=== PATIENT | female | born 1945 | race Caucasian/White ===

== ENCOUNTER 2017-03-25 17:11 | Inpatient (IN) | payer MEDICARE ==
[~2017-03-25] VITALS: Ht 160 cm; Wt 81.4 kg
[2017-03-25 18:38] VITALS: BP 114/75
[2017-03-25] MEDS ORDERED: LEVO50TA5 PO (18:44)
[2017-03-25] MEDS ORDERED: APIX5TAB PO (18:44)
[2017-03-25] MEDS ORDERED: ASPI-515 PO (18:44)
[2017-03-25] MEDS ORDERED: ROSU5TAB PO (18:44)
[2017-03-25] MEDS ORDERED: ONDANSETRON 2MG/ML, 2ML IV PRN (19:00)
[2017-03-25] MEDS ORDERED: ACETAMINOPHEN 500 MG TABLET PO PRN (19:00)
[2017-03-25] MEDS ORDERED: ONDANSETRON 4 MG TABLET PO PRN (19:00)
[2017-03-25 19:57] VITALS: BP 132/79
[2017-03-26 00:44] VITALS: BP 114/70
[2017-03-26 05:32] LABS: HEMATOCRIT 40.3 % (34.6-47.8); HEMOGLOBIN 13.7 g/dL (11.7-16.4); WHITE BLOOD COUNT 6.4 x10^3/uL (3.4-10)
[2017-03-26 05:44] LABS: BLOOD UREA NITROGEN 11 mg/dL (7-18)
[2017-03-26 05:49] LABS: ASPARTATE AMINO TRANSFERASE 27 U/L (15-37)
[2017-03-26] MEDS: LEVOTHYROXINE 50 MCG TABLET PO SCH (06:27)
[2017-03-26 08:57] VITALS: BP 125/80
[2017-03-26] MEDS ORDERED: PROTAMINE SULFATE 10 MG/ML, 5ML ONE (12:02)
[2017-03-26] MEDS ORDERED: HEPARIN 1,000 UNITS/ML, 10ML ONE (12:03)
[2017-03-26] MEDS ORDERED: LIDOCAINE 2%, 20ML ONE (12:03)
[2017-03-26] MEDS ORDERED: DEXAMETHASONE 4 MG/ML, 5ML ONE (12:26)
[2017-03-26] MEDS ORDERED: ONDANSETRON 2MG/ML, 2ML ONE (12:26)
[2017-03-26] MEDS ORDERED: PHENYLEPHRINE 10 MG/ML ONE (12:26)
[2017-03-26] MEDS ORDERED: ROCURONIUM 10 MG/ML,10ML ONE (12:26)
[2017-03-26] MEDS ORDERED: SUCCINYLCHOLINE 20 MG/ML, 10ML ONE (12:26)
[2017-03-26] MEDS ORDERED: PROPOFOL 10 MG/ML, 20ML ONE (12:26)
[2017-03-26] MEDS ORDERED: FENTANYL PF 250 MCG/5ML ONE (12:28)
[2017-03-26] MEDS ORDERED: MIDAZOLAM 1 MG/ML, 5ML ONE (12:28)
[2017-03-26] MEDS ORDERED: ISOPROTERENOL 0.2MG/ML, 5ML ONE (13:13)
[2017-03-26] MEDS ORDERED: ADENOSINE 6 MG/2 ML ONE ×2 (13:27→14:13)
[2017-03-26] MEDS ORDERED: ZOLPIDEM 5MG TABLET PO PRN (15:00)
[2017-03-26] MEDS ORDERED: HYDROmorphone 1 MG/ML, 1ML IV PRN (15:30)
[2017-03-26] MEDS ORDERED: FENTANYL PF 100 MCG/2ML IV PRN (15:30)
[2017-03-26] MEDS ORDERED: ONDANSETRON 2MG/ML, 2ML IVPush PRN (15:30)
[2017-03-26] MEDS ORDERED: OXYcodone 5 MG/5 ML ORAL.SOL UDC PO PRN (15:30)
[2017-03-26] MEDS ORDERED: MEPERIDINE/PF 25MG/0.5ML IVPush PRN (15:30)
[2017-03-26] MEDS ORDERED: MIDAZOLAM 1 MG/ML, 2ML IV PRN (15:30)
[2017-03-26] MEDS ORDERED: LABETALOL 5MG/ML, 20ML IV PRN (15:30)
[2017-03-26] MEDS ORDERED: PROMETHAZINE 25 MG/ML, 1ML IV PRN (15:30)
[2017-03-26] MEDS ORDERED: ACETAMINOPHEN 325 MG TABLET PO PRN (15:30)
[2017-03-26] MEDS ORDERED: hydrALAzine 20 MG/ML, 1ML IV PRN (15:30)
[2017-03-26] MEDS ORDERED: ALBUTEROL SULFATE 2.5 MG/3 ML NPPB PRN (15:30)
[2017-03-26 16:40] VITALS: BP 127/81
[2017-03-26 20:00] VITALS: BP 127/80
[2017-03-26] MEDS ORDERED: TEMPLATE NON-FORMULARY MED. (Rosuvastatin Calcium** (Crestor**) 5 MG) PO SCH (21:00)
[2017-03-26] MEDS: APIXABAN 5 MG TABLET PO SCH (21:43)
[2017-03-27 00:24] VITALS: BP 98/58
[2017-03-27 04:00] VITALS: BP 107/65
[2017-03-27] MEDS: LEVOTHYROXINE 50 MCG TABLET PO SCH (06:32)
[2017-03-27 07:15] VITALS: BP 107/67
[2017-03-27] MEDS: APIXABAN 5 MG TABLET PO SCH (08:52)
[2017-03-27] MEDS ORDERED: LEVOTHYROXINE 50 MCG TABLET PO SCH (09:00)
[2017-03-27] MEDS ORDERED: ASPIRIN 81 MG TABLET EC PO SCH (09:00)
== END 2017-03-27 12:28 | disposition home or self-care (01) | DRG 273 ==
LOC: 5SO 17:11
PROVIDERS: ADMIT Internal Medicine Clinical Cardiac Electrophysiology; ATTEND Internal Medicine Clinical Cardiac Electrophysiology
PROC: 02583ZZ Destruction of Conduction Mechanism, Percutaneous Approach (ICD-10-PCS; 2017-03-26)
PROC: 4A0234Z Measurement of Cardiac Electrical Activity, Percutaneous Approach (ICD-10-PCS; 2017-03-26)
PROC: 02K83ZZ Map Conduction Mechanism, Percutaneous Approach (ICD-10-PCS; 2017-03-26)
PROC: 4A023FZ Measurement of Cardiac Rhythm, Percutaneous Approach (ICD-10-PCS; principal; 2017-03-26 13:00)
DX: I47.1 Supraventricular tachycardia (principal); E43 Unspecified severe protein-calorie malnutrition; I45.10 Unspecified right bundle-branch block; E03.9 Hypothyroidism, unspecified; I10 Essential (primary) hypertension; Z87.891 Personal history of nicotine dependence; E78.5 Hyperlipidemia, unspecified; Z79.01 Long term (current) use of anticoagulants; Z79.899 Other long term (current) drug therapy
CPT/HCPCS: 36415; 80053; 85025; 85347; 85610; 93005; 93462; 93613; 93621; 93623; 93653; 93662; C1766; C1894; J0153; J1100; J1644; J2250; J2405; J2704; J2720; J3010; J3490; C1730; C1759; C2630; J0330; J2370